=== PATIENT | female | born 1960 | race Caucasian/White ===

== ENCOUNTER 2017-01-16 14:25 | Inpatient (IN) | payer BC ==
[~2017-01-16] VITALS: Ht 165.1 cm; Wt 72.6 kg
[2017-01-16] MEDS ORDERED: IV NORMAL SALINE 1000ML BAG 1,000 ML IV SCH (15:25)
[2017-01-16] MEDS ORDERED: ONDANSETRON PF 4 MG/2 ML VIAL. IV ONE (15:30)
[2017-01-16] MEDS ORDERED: HYDROmorphone 2 MG/ML VIAL IV ONE (15:30)
[2017-01-16 15:45] LABS: BILIRUBIN,URINE SMALL (NEG); GLUCOSE,URINE NEGATIVE (NEG); NITRITE,URINE NEGATIVE (NEG); PH,URINE 5.5; PROTEIN,URINE 100 mg/dL (NEG-TRACE); UROBILINOGEN,URINE 0.2 mg/dL (0.2 mg/dL)
[2017-01-16 15:50] LABS: BACTERIA,URINE FEW /HPF (0-FEW); RBC,URINE OCC /HPF (0-2); WBC,URINE RARE /HPF (0-4)
[2017-01-16 15:51] LABS: SQUAMOUS EPITHELIAL CELL,UR MOD /LPF
[2017-01-16 15:52] LABS: INR 1.2 (0.8-1.1); PROTHROMBIN TIME PATIENT 14.5 SEC (11.7-14.0)
--- NOTE | 2017-01-16 15:53 | PHYS DOC ---
Past Medical History Past Medical History: DVT, Glaucoma, High Cholesterol, Hypothyroid Past Surgical History: Other Additional Past Surgical Histo: dental Alcohol Use: None Drug Use: None Adult General Chief Complaint Chief Complaint: ABDOMINAL PAIN HPI HPI Patient is a 56 year old female who presents with abdominal pain and N/V/D. Patient reports she has been having sharp pain in her RUQ/ R mid abdomen stretching across her abdomen since 0100 this morning. Has also been having N/V (emesis x6-9), loose stools (diarrhea x3-4), and feels bloated. She tried taking some pepto bismol but vomited right after she drank it. Patient reports one prior episode that she believes was diagnosed as gastritis. Review of Systems Review of Systems Constitutional: Denies fever or chills HENT: Denies nasal congestion or sore throat Respiratory: Denies cough or shortness of breath Cardiovascular: Denies chest pain GI: General abdominal pain, nausea, vomiting, diarrhea : Denies dysuria or hematuria Musculoskeletal: Denies back pain or joint pain Integument: Denies rash or skin lesions Neurologic: Denies headache, focal weakness or sensory changes Current Medications Current Medications Current Medications Medications (Trade) Dose Ordered Sig/Shanel Start Time Stop Time Status Last Admin Dose Admin Hydromorphone HCl (Dilaudid) 0.5 mg 1X ONCE 01/16/17 15:30 01/16/17 15:31 DC 01/16/17 16:03 0.5 MG Iohexol 75 ml 75 ml 1X ONCE 01/16/17 16:15 01/16/17 16:16 DC 01/16/17 16:12 75 ML Ondansetron HCl (Zofran) 4 mg 1X ONCE 01/16/17 15:30 01/16/17 15:31 DC 01/16/17 16:03 4 MG Sodium Chloride (Iv Sodium Chloride 0.9% 1000ml Bag) 1,000 ml @ 150 mls/hr Q6H40M 01/16/17 17:10 01/17/17 17:09 Allergies Allergies Allergies Coded Allergies Type Severity Reaction Last Updated Verified Penicillins Allergy Unknown 01/16/17 Yes Sulfa (Sulfonamide Antibiotics) Allergy Unknown 01/16/17 Yes amoxicillin Allergy Unknown 01/16/17 Yes Physical Exam Physical Exam Constitutional: Well developed, well nourished, uncomfortable, non-toxic appearance HENT: Normocephalic, atraumatic, bilateral external ears normal Cardiovascular: Heart rate normal, regular rhythm, no murmur Lungs & Thorax: Bilateral breath sounds clear to auscultation Abdomen: Bowel sounds normal, soft, distended, marked TTP throughout (worst in R mid abdomen), no guarding or rebound Skin: Warm, dry, no erythema, no rash Extremities: No obvious deformity, no edema Neurologic: Alert and oriented X 3, no gross deficits noted Current Patient Data Vital Signs Vital Signs Date Time Temp Pulse Resp B/P Pulse Ox O2 Delivery O2 Flow Rate FiO2 01/16/17 16:03 26 01/16/17 15:00 97.6 80 131/74 94 Room Air 97.6 Lab Values Laboratory Tests Test 01/16/17 14:54 01/16/17 15:25 Urine Collection Type Unknown Urine Color Dk yellow Urine Clarity Turbid Urine pH 5.5 Urine Specific [place] >=1.030 Urine Protein 100mg/dL (NEG-TRACE) Urine Glucose (UA) Negativemg/dL (NEG) Urine Ketones (Stick) 15mg/dL (NEG) Urine Blood Large (NEG) Urine Nitrite Negative (NEG) Urine Bilirubin Small (NEG) Urine Urobilinogen Dipstick 0.2mg/dL (0.2 mg/dL) Urine Leukocyte Esterase Negative (NEG) Urine RBC Occ/HPF (0-2) Urine WBC Rare/HPF (0-4) Urine Squamous Epithelial Cells Mod/LPF Urine Amorphous Sediment Present/HPF Urine Bacteria Few/HPF (0-FEW) Urine Mucus Marked/LPF White Blood Count 14.1x10^3/uL (4.0-11.0) H Red Blood Count 5.32x10^6/uL (3.50-5.40) Hemoglobin 14.6g/dL (12.0-15.5) Hematocrit 44.5% (36.0-47.0) Mean Corpuscular Volume 84fL (79-100) Mean Corpuscular Hemoglobin 28pg (25-35) Mean Corpuscular Hemoglobin Concent 33g/dL (31-37) Red Cell Distribution Width 17.4% (11.5-14.5) H Platelet Count 272x10^3/uL (140-400) Neutrophils (%) (Auto) 85% (31-73) H Lymphocytes (%) (Auto) 10% (24-48) L Monocytes (%) (Auto) 5% (0-9) Eosinophils (%) (Auto) 0% (0-3) Basophils (%) (Auto) 1% (0-3) Neutrophils # (Auto) 12.0x10^3uL (1.8-7.7) H Lymphocytes # (Auto) 1.4x10^3/uL (1.0-4.8) Monocytes # (Auto) 0.6x10^3/uL (0.0-1.1) Eosinophils # (Auto) 0.0x10^3/uL (0.0-0.7) Basophils # (Auto) 0.1x10^3/uL (0.0-0.2) Prothrombin Time 14.5SEC (11.7-14.0) H Prothrombin Time INR 1.2 (0.8-1.1) H Sodium Level 139mmol/L (136-145) Potassium Level 3.8mmol/L (3.5-5.1) Chloride Level 101mmol/L (98-107) Carbon Dioxide Level 26mmol/L (21-32) Anion Gap 12 (6-14) Blood Urea Nitrogen 15mg/dL (7-20) Creatinine 1.0mg/dL (0.6-1.0) Estimated GFR (Cockcroft-Gault) 57.4 BUN/Creatinine Ratio 15 (6-20) Glucose Level 136mg/dL (70-99) H Calcium Level 9.5mg/dL (8.5-10.1) Total Bilirubin 0.6mg/dL (0.2-1.0) Aspartate Amino Transferase (AST) 21U/L (15-37) Alanine Aminotransferase (ALT) 25U/L (14-59) Alkaline Phosphatase 112U/L (46-116) Total Protein 8.5g/dL (6.4-8.2) H Albumin 4.2g/dL (3.4-5.0) Albumin/Globulin Ratio 1.0 (1.0-1.7) Lipase 155U/L (73-393) Laboratory Tests 01/16/17 15:25 Laboratory Tests 01/16/17 15:25 EKG EKG [] Radiology/Procedures Radiology/Procedures CT A/P: Impression: Findings are seen consistent with a small bowel obstruction as outlined above. Course & Med Decision Making Course & Med Decision Making Pertinent Labs and Imaging studies reviewed. (See chart for details) Patient is 56 year old female who presents with abdominal pain, N/V/D. DDx includes appendicitis, bowel obstruction, gallbladder disease. Labs, UA, CT A/P ordered to evaluate. IV fluid bolus, pain meds, nausea meds ordered for patient comfort. Labs notable for leukocytosis. CT indicative of small bowel obstruction. Discussed results with patient. Discussed with Dr. Good (hr business partner consultant surgeon); will place NG tube, do not need to give abx at this time. Patient made NPO. I spoke with Dr. Silva, will admit under her care for further evaluation and treatment. Dragon Disclaimer Dragon Disclaimer This electronic medical record was generated, in whole or in part, using a voice recognition dictation system. Departure Departure Impression: Primary Impression: Small bowel obstruction Disposition: ADMITTED INPATIENT Admitting Physician: Huma Silva Condition: STABLE Referrals: UNKNOWN PCP NAME (PCP) CJ ABAD MD Jan 16, 2017 15:53
[2017-01-16 15:55] LABS: CALCIUM 9.5 mg/dL (8.5-10.1); GFR 57.4; POTASSIUM 3.8 mmol/L (3.5-5.1)
[2017-01-16 16:00] LABS: ALBUMIN 4.2 g/dL (3.4-5.0); TOTAL BILIRUBIN 0.6 mg/dL (0.2-1.0); TOTAL PROTEIN 8.5 g/dL (6.4-8.2)
[2017-01-16 16:11] LABS: BASO # 0.1 x10^3/uL (0.0-0.2); BASO % 1 % (0-3); EOS % 0 % (0-3); HEMATOCRIT 44.5 % (36.0-47.0); HEMOGLOBIN 14.6 g/dL (12.0-15.5); LYMPH # 1.4 x10^3/uL (1.0-4.8); LYMPH % 10 % (24-48); MEAN CORPUSCULAR HEMOGLOBIN 28 pg (25-35); MEAN CORPUSCULAR HGB CONC 33 g/dL (31-37); MEAN CORPUSCULAR VOLUME 84 fL (79-100); MONO % 5 % (0-9); NEUT % 85 % (31-73); PLATELET COUNT 272 x10^3/uL (140-400); RED BLOOD COUNT 5.32 x10^6/uL (3.50-5.40); RED CELL DISTRIBUTION WIDTH 17.4 % (11.5-14.5); WHITE BLOOD COUNT 14.1 x10^3/uL (4.0-11.0)
[2017-01-16] MEDS ORDERED: IOHEXOL 300 MG/ML 75 ML VIAL IV ONE (16:15)
--- NOTE | 2017-01-16 16:55 | RAD ---
CT scan of the abdomen and pelvis with contrast 01/16/2017 Clinical history: Right-sided abdominal pain with nausea and vomiting. Technique: After the intravenous administration of 60 cc of Omnipaque 300, contiguous, 5 mm axial sections were obtained to the abdomen and pelvis. One or more of the following individualized dose reduction techniques were utilized for this study: 1. Automated exposure control. 2. Adjustment of the mA and/or kV according to patient size. 3. Use of iterative reconstruction technique. Findings: Images through the lung bases are within normal limits. The liver parenchyma has a decreased attenuation consistent with mild fatty infiltration. The spleen, pancreas, adrenal glands and kidneys are within normal limits. The abdominal aorta tapers normally. The gallbladder is well-distended. No free fluid or free air is seen within the abdomen. The appendix is well visualized and is within normal limits. Progressive air and fluid dilatation of distal jejunal and proximal and mid ileal loops throughout the abdomen is seen. There appears to be a transition point in the caliber of the bowel in the right lower quadrant abdomen involving the distal ileum. These findings are consistent with a small bowel obstruction. The colon is decompressed. No abnormal fluid collection is seen. Images through the pelvis demonstrate the urinary bladder distended with urine. No free fluid is noted. No adnexal mass is seen. Degenerative changes are seen involving the mid and lower lumbar spine and both hips. Impression: Findings are seen consistent with a small bowel obstruction as outlined above.
[2017-01-16] MEDS ORDERED: HYDROmorphone 2 MG/ML VIAL IV PRN (17:15)
[2017-01-16] MEDS ORDERED: ONDANSETRON PF 4 MG/2 ML VIAL. IV PRN ×2 (17:15→17:30)
[2017-01-16] MEDS ORDERED: ACETAMINOPHEN 325 MG TABLET. PO PRN (17:15)
--- NOTE | 2017-01-16 17:30 | PDOC1 ---
History and Physical Date of Admission Date of Admission DATE: 01/16/17 TIME: 17:22 Identification/Chief Complaint Chief Complaint abd pain Problems: Source Source: Caregiver, Chart review, Patient History of Present Illness History of Present Illness pleasant 56 y.o female who is just here in [place] visiting for a wedding, acute abd pain today, mostly R sided area, no emesis, some liquidy stools today , LAst BM 2 AM today, went to ER, WBC 14, CT scan shows a transition point and some partial SBP, Hence pt admitted, Same issue HAppened 5 yrs ago, no past abd surgeries, non narcotic abuser, Maybe on constipated side, LAst tx DID not need an nGT, "loaded her up with stool softener" and bowel obstruction relieved, NO mention of heavy stools on CT. I have personally reviewed CT Abd feels bloated, tympanitic but no guarding, no rebound, NO fevers, VS ok,. Dilaudid signif helps the pain. PAst medical; hypothyroid on synthroid - last checked 2 mos ago - at goal Glaucoma on eye drps Dyslipidemia on statin DVT from control patch - off AC PAst sx: none Allergies to PCN,ampicillin and sulfa - anaphylaxis Fam hx: DVT, emphysema, smoking hx in fam Non smoker, non drinker no street drugs ROS: all 14 pt neg reviewed except in HPI Social History Smoke: No ALCOHOL: none Drugs: None Current Medications Current Medications Current Medications Sodium Chloride (Iv Sodium Chloride 0.9% 1000ml Bag) 1,000 ml @ 1,000 mls/hr Q1H IV Last administered on 01/16/17 16:03; Start 01/16/17 at 15:25; Stop at 16:24; Status DC Hydromorphone HCl (Dilaudid) 0.5 mg 1X ONCE IV Last administered on 01/16/17 16:03; Start 01/16/17 at 15:30; Stop 01/16/17 at 15:31; Status DC Ondansetron HCl (Zofran) 4 mg 1X ONCE IV Last administered on 01/16/17 16:03 ; Start 01/16/17 at 15:30; Stop 01/16/17 at 15:31; Status DC Iohexol (Omnipaque 300 Mg/ml) 75 ml 1X ONCE IV Last administered on 4/23/17at 16:12; Start 01/16/17 at 16:15; Stop 01/16/17 at 16:16; Status DC Ondansetron HCl 4 mg 4 mg PRN Q8HRS PRN IV NAUSEA/VOMITING; Start 01/16/17 at 17:15; Stop 01/17/17 at 17:14 Sodium Chloride (Iv Sodium Chloride 0.9% 1000ml Bag) 1,000 ml @ 150 mls/hr Q6H40M IV ; Start 01/16/17 at 17:10; Stop 01/17/17 at 17:09 Acetaminophen (Tylenol) 650 mg PRN Q4HRS PRN PO FEVER; Start 01/16/17 at 17:15 ; Stop 01/17/17 at 17:14 Hydromorphone HCl (Dilaudid) 0.5 mg PRN Q1HR PRN IV pain; Start 01/16/17 at 17: 15 Allergies Allergies: Coded Allergies: Penicillins (Verified Allergy, Unknown, 01/16/17) Sulfa (Sulfonamide Antibiotics) (Verified Allergy, Unknown, 01/16/17) amoxicillin (Verified Allergy, Unknown, 01/16/17) ROS General: No: Appetite, Chills, Fatigue, Malaise, Night Sweats, Other PSYCHOLOGICAL ROS: No: Anxiety, Behavioral Disorder, Concentration difficultie , Decreased libido, Depression, Disorientation, Hallucinations, Hostility, Irritablity, Memory difficulties, Mood Swings, Obsessive thoughts, Other, Physical abuse, Sexual abuse, Sleep disturbances, Suicidal ideation Eyes: No Blurry vision, No Decreased vision, No Double vision, No Dry eyes, No Excessive tearing, No Eye Pain, No Itchy Eyes, No Loss of vision, No Other, No Photophobia, No Scotomata, No Uses contacts, No Uses glasses HEENT: No: Epistaxis, Heacaches, Hearing change, Nasal congestion, Nasal discharge, Oral lesions, Other, Sinus pain, Sneezing, Snoring, Sore Throat, Tinnitus, Vertigo, Visual Changes, Vocal changes ALLERGY AND IMMUNOLOGY: No: Hives, Insect Bite Sensitivity, Itchy/Watery Eyes, Nasal Congestion, Other, Post Nasal Drip, Seasonal Allergies Hematological and Lymphatic: No: Bleeding Problems, Blood Clots, Blood Transfusions, Brusing, Night Sweats, Other, Pallor, Swollen Lymph Nodes ENDOCRINE: No: Breast Changes, Galactorrhea, Hair Pattern Changes, Hot Flashes , Malaise/lethargy, Mood Swings, Other, Palpitations, Polydipsia/polyuria, Skin Changes, Temperature Intolerance, Unexpected Weight Changes Breast: No New/Changing Breast Lumps, No Nipple changes, No Nipple discharge, No Other Respiratory: No: Cough, Hemoptysis, Orthopnea, Other, Pleuritic Pain, SOB with excertion, Shortness of breath, Sputum Changes, Stridor, Tachypnea, Wheezing Cardiovascular: No Chest Pain, No Edema, No Lt Headedness, No Orthopnea, No Other, No Palpitations, No Paroxysmal Noc. Dyspnea Gastrointestinal: Yes Abdominal Pain, Yes Constipation Genitourinary: No , No , No , No , No , No , No , No Discharge, No Dysuria, No Flank Pain, No Frequency, No Hematuria, No Incontinence, No Other, No Pain, No Retention, No Urgency Musculoskeletal: No Gait Disturbance, No Joint Pain, No Joint Stiffness, No Joint Swelling, No Muscle Pain, No Muscular Weakness, No Other, No Pain In:, No Swelling In: Neurological: No Behavorial Changes, No Bowel/Bladder ControlChng, No Confusion , No Dizziness, No Gait Disturbance, No Headaches, No Impaired Coord/balance, No Memory Loss, No Numbness/Tingling, No Other, No Seizures, No Speech Problems , No Tremors, No Visual Changes, No Weakness Skin: No Acne, No Dry Skin, No Eczema, No Hair Changes, No Lumps, No Mole Changes, No Mottling, No Nail Changes, No Other, No Pruritus, No Rash, No Skin Lesion Changes Physical Exam General: Alert, Oriented X3, Cooperative, No acute distress HEENT: Atraumatic, PERRLA, EOMI Lungs: Clear to auscultation, Normal air movement Heart: S1S2, no gallops Cardiovascular: S1, S2 Breasts: Normal Abdomen: Soft, Other (hypoactive BS< tympanitic) Extremities: No clubbing, No cyanosis, No edema, Normal pulses, No tenderness/ swelling Skin: No rashes, No breakdown, No significant lesion Neuro: Normal gait, Normal speech, Strength at 5/5 X4 ext, Normal tone, Sensation intact, Cranial nerves 3-12 NL, Reflexes 2+ Psych/Mental Status: Mental status NL, Mood NL Vitals Vitals Vital Signs Date Time Temp Pulse Resp B/P Pulse Ox O2 Delivery O2 Flow Rate FiO2 01/16/17 16:03 26 01/16/17 15:00 97.6 80 131/74 94 Room Air 97.6 Labs Labs Laboratory Tests Test 01/16/17 14:54 01/16/17 15:25 Urine Collection Type Unknown Urine Color Dk yellow Urine Clarity Turbid Urine pH 5.5 Urine Specific [place] >=1.030 Urine Protein 100mg/dL (NEG-TRACE) Urine Glucose (UA) Negativemg/dL (NEG) Urine Ketones (Stick) 15mg/dL (NEG) Urine Blood Large (NEG) Urine Nitrite Negative (NEG) Urine Bilirubin Small (NEG) Urine Urobilinogen Dipstick 0.2mg/dL (0.2 mg/dL) Urine Leukocyte Esterase Negative (NEG) Urine RBC Occ/HPF (0-2) Urine WBC Rare/HPF (0-4) Urine Squamous Epithelial Cells Mod/LPF Urine Amorphous Sediment Present/HPF Urine Bacteria Few/HPF (0-FEW) Urine Mucus Marked/LPF White Blood Count 14.1x10^3/uL (4.0-11.0) Red Blood Count 5.32x10^6/uL (3.50-5.40) Hemoglobin 14.6g/dL (12.0-15.5) Hematocrit 44.5% (36.0-47.0) Mean Corpuscular Volume 84fL (79-100) Mean Corpuscular Hemoglobin 28pg (25-35) Mean Corpuscular Hemoglobin Concent 33g/dL (31-37) Red Cell Distribution Width 17.4% (11.5-14.5) Platelet Count 272x10^3/uL (140-400) Neutrophils (%) (Auto) 85% (31-73) Lymphocytes (%) (Auto) 10% (24-48) Monocytes (%) (Auto) 5% (0-9) Eosinophils (%) (Auto) 0% (0-3) Basophils (%) (Auto) 1% (0-3) Neutrophils # (Auto) 12.0x10^3uL (1.8-7.7) Lymphocytes # (Auto) 1.4x10^3/uL (1.0-4.8) Monocytes # (Auto) 0.6x10^3/uL (0.0-1.1) Eosinophils # (Auto) 0.0x10^3/uL (0.0-0.7) Basophils # (Auto) 0.1x10^3/uL (0.0-0.2) Prothrombin Time 14.5SEC (11.7-14.0) Prothromb Time International Ratio 1.2 (0.8-1.1) Sodium Level 139mmol/L (136-145) Potassium Level 3.8mmol/L (3.5-5.1) Chloride Level 101mmol/L (98-107) Carbon Dioxide Level 26mmol/L (21-32) Anion Gap 12 (6-14) Blood Urea Nitrogen 15mg/dL (7-20) Creatinine 1.0mg/dL (0.6-1.0) Estimated GFR (Cockcroft-Gault) 57.4 BUN/Creatinine Ratio 15 (6-20) Glucose Level 136mg/dL (70-99) Calcium Level 9.5mg/dL (8.5-10.1) Total Bilirubin 0.6mg/dL (0.2-1.0) Aspartate Amino Transf (AST/SGOT) 21U/L (15-37) Alanine Aminotransferase (ALT/SGPT) 25U/L (14-59) Alkaline Phosphatase 112U/L (46-116) Total Protein 8.5g/dL (6.4-8.2) Albumin 4.2g/dL (3.4-5.0) Albumin/Globulin Ratio 1.0 (1.0-1.7) Lipase 155U/L (73-393) Laboratory Tests Test 01/16/17 14:54 01/16/17 15:25 Urine Collection Type Unknown Urine Color Dk yellow Urine Clarity Turbid Urine pH 5.5 Urine Specific [place] >=1.030 Urine Protein 100mg/dL (NEG-TRACE) Urine Glucose (UA) Negativemg/dL (NEG) Urine Ketones (Stick) 15mg/dL (NEG) Urine Blood Large (NEG) Urine Nitrite Negative (NEG) Urine Bilirubin Small (NEG) Urine Urobilinogen Dipstick 0.2mg/dL (0.2 mg/dL) Urine Leukocyte Esterase Negative (NEG) Urine RBC Occ/HPF (0-2) Urine WBC Rare/HPF (0-4) Urine Squamous Epithelial Cells Mod/LPF Urine Amorphous Sediment Present/HPF Urine Bacteria Few/HPF (0-FEW) Urine Mucus Marked/LPF White Blood Count 14.1x10^3/uL (4.0-11.0) Red Blood Count 5.32x10^6/uL (3.50-5.40) Hemoglobin 14.6g/dL (12.0-15.5) Hematocrit 44.5% (36.0-47.0) Mean Corpuscular Volume 84fL (79-100) Mean Corpuscular Hemoglobin 28pg (25-35) Mean Corpuscular Hemoglobin Concent 33g/dL (31-37) Red Cell Distribution Width 17.4% (11.5-14.5) Platelet Count 272x10^3/uL (140-400) Neutrophils (%) (Auto) 85% (31-73) Lymphocytes (%) (Auto) 10% (24-48) Monocytes (%) (Auto) 5% (0-9) Eosinophils (%) (Auto) 0% (0-3) Basophils (%) (Auto) 1% (0-3) Neutrophils # (Auto) 12.0x10^3uL (1.8-7.7) Lymphocytes # (Auto) 1.4x10^3/uL (1.0-4.8) Monocytes # (Auto) 0.6x10^3/uL (0.0-1.1) Eosinophils # (Auto) 0.0x10^3/uL (0.0-0.7) Basophils # (Auto) 0.1x10^3/uL (0.0-0.2) Prothrombin Time 14.5SEC (11.7-14.0) Prothromb Time International Ratio 1.2 (0.8-1.1) Sodium Level 139mmol/L (136-145) Potassium Level 3.8mmol/L (3.5-5.1) Chloride Level 101mmol/L (98-107) Carbon Dioxide Level 26mmol/L (21-32) Anion Gap 12 (6-14) Blood Urea Nitrogen 15mg/dL (7-20) Creatinine 1.0mg/dL (0.6-1.0) Estimated GFR (Cockcroft-Gault) 57.4 BUN/Creatinine Ratio 15 (6-20) Glucose Level 136mg/dL (70-99) Calcium Level 9.5mg/dL (8.5-10.1) Total Bilirubin 0.6mg/dL (0.2-1.0) Aspartate Amino Transf (AST/SGOT) 21U/L (15-37) Alanine Aminotransferase (ALT/SGPT) 25U/L (14-59) Alkaline Phosphatase 112U/L (46-116) Total Protein 8.5g/dL (6.4-8.2) Albumin 4.2g/dL (3.4-5.0) Albumin/Globulin Ratio 1.0 (1.0-1.7) Lipase 155U/L (73-393) VTE Prophylaxis Ordered VTE Prophylaxis Devices: Yes VTE Pharmacological Prophylaxi: Yes Assessment/Plan Assessment/Plan 1. PArtial SBO \\2. COnstipation 3, hypothyrodism on synthorid 4,. Dyslipidemia on statin 5. Glaucoma on eye drops \\6. Obesity 7. Reactive leukocytosis PLAN: NPO, IVF Check TSH, T3, T4 Consult Gi and GS Dilaudid for pain Stool regimen Possibly KUB in AM or tues AM Dw ER MD, and pt Seen at ER 22 RONNIE VINCENT MD Jan 16, 2017 17:29
--- NOTE | 2017-01-16 18:08 | ACF ---
Admission Forms Criteria INTESTINAL OBSTRUCTION Clinical Indications for Admission to Inpatient Care (Place 'X' for any and all applicable criteria): Admission is indicated for ANY ONE of the following (1)(2)(3)(4)(5): [X]I. Partial bowel obstruction [ ]II. Complete bowel obstruction Extended stay beyond goal length of stay may be needed for(1)(4)(12(: [ ]a) Identified etiology (eg, hernia, volvulus, cancer with obstruction) requiring intervention [ ]b) Gallstone ileus [ ]c) Surgical intervention [ ]d) Acute comorbid illness (eg, electrolyte imbalance, hypovolemia, renal failure) The original [employer] content created by [employer] has been revised. The portions of the content which have been revised are identified through the use of italic text or in bold, and [facility] has neither reviewed nor approved the modified material. All other unmodified content is copyright [employer]. Please see references footnoted in the original [employer] edition 2016 Admission Criteria Met?: Yes ANDRÉS CORDON Jan 16, 2017 18:08
[2017-01-16 18:20] VITALS: BP 121/66
[2017-01-16 18:21] LABS: FREE T4 1.08 ng/dL (0.76-1.46)
[2017-01-16] MEDS: IV NORMAL SALINE 1000ML BAG 1,000 ML IV SCH (18:25)
[2017-01-16 19:30] VITALS: BP 115/66
[2017-01-16] MEDS ORDERED: LEVO50TA5 PO (20:39)
[2017-01-16] MEDS ORDERED: PRAV40TA2 PO (20:39)
[2017-01-16] MEDS ORDERED: LATA2.5D3 EACHEYE (20:39)
[2017-01-16] MEDS ORDERED: GENI30TA2 PO (20:39)
[2017-01-16 23:15] VITALS: BP 89/53
[2017-01-17] MEDS: IV NORMAL SALINE 1000ML BAG 1,000 ML IV SCH ×3 (00:05→13:10)
[2017-01-17 03:27] VITALS: BP 91/49
[2017-01-17 06:17] LABS: BASO # 0.1 x10^3/uL (0.0-0.2); BASO % 1 % (0-3); EOS % 1 % (0-3); HEMATOCRIT 38.1 % (36.0-47.0); HEMOGLOBIN 12.4 g/dL (12.0-15.5); LYMPH # 2.4 x10^3/uL (1.0-4.8); LYMPH % 31 % (24-48); MEAN CORPUSCULAR HEMOGLOBIN 28 pg (25-35); MEAN CORPUSCULAR HGB CONC 32 g/dL (31-37); MEAN CORPUSCULAR VOLUME 85 fL (79-100); MONO % 8 % (0-9); NEUT % 59 % (31-73); PLATELET COUNT 210 x10^3/uL (140-400); RED BLOOD COUNT 4.46 x10^6/uL (3.50-5.40); RED CELL DISTRIBUTION WIDTH 17.5 % (11.5-14.5); WHITE BLOOD COUNT 7.8 x10^3/uL (4.0-11.0)
[2017-01-17 06:27] LABS: CREATININE 0.8 mg/dL (0.6-1.0); GFR 74.2; POTASSIUM 3.8 mmol/L (3.5-5.1)
[2017-01-17 07:00] VITALS: BP 110/61
--- NOTE | 2017-01-17 09:52 | PDOC2 ---
GARRETT KING [employer] 01/17/17 0952: CONSULT Date of Consult Date of Consult DATE: 01/17/17 TIME: 09:43 Reason for Consult Reason for Consult: sbo Referring Physician Referring Physician: ER Identification/Chief Complaint Chief Complaint abdominal pain Source Source: Chart review, Patient History of Present Illness Reason for Visit: reports Tuesday in town for a wedding had a homeade meal that did contain pork( she is allergic to pork)tried to pick it out, but likely ate some After wedding, abdominal pain, n/v. Reports last BM today, still having some intermittent RLQ pain, + flatus. Did have a BM Tuesday also Similar symptoms 4 years ago, seen by her PCP for constipation and treated, that resolved her symptoms Past Medical History Cardiovascular: Hyperlipidemia Heme/Onc: Other (DVT) Endocrine: Hypothyroidism Past Surgical History Past Surgical History: No pertinent history Family History Family History: Other (noncontributory to current illness ) Social History No ALCOHOL: none Drugs: None Lives: with Family Current Problem List Problem List Problems Medical Problems: (1) Small bowel obstruction Status: Acute Current Medications Current Medications Current Medications Sodium Chloride (Iv Sodium Chloride 0.9% 1000ml Bag) 1,000 ml @ 1,000 mls/hr Q1H IV Last administered on 01/16/17 16:03; Start 01/16/17 at 15:25; Stop at 16:24; Status DC Hydromorphone HCl (Dilaudid) 0.5 mg 1X ONCE IV Last administered on 01/16/17 16:03; Start 01/16/17 at 15:30; Stop 01/16/17 at 15:31; Status DC Ondansetron HCl (Zofran) 4 mg 1X ONCE IV Last administered on 01/16/17 16:03 ; Start 01/16/17 at 15:30; Stop 01/16/17 at 15:31; Status DC Iohexol (Omnipaque 300 Mg/ml) 75 ml 1X ONCE IV Last administered on 01/16/17 16:12; Start 01/16/17 at 16:15; Stop 01/16/17 at 16:16; Status DC Ondansetron HCl 4 mg 4 mg PRN Q8HRS PRN IV NAUSEA/VOMITING; Start 01/16/17 at 17:15; Stop 01/16/17 at 17:31; Status DC Sodium Chloride (Iv Sodium Chloride 0.9% 1000ml Bag) 1,000 ml @ 150 mls/hr Q6H40M IV Last administered on 01/17/17 06:20; Start 01/16/17 at 17:10; Stop 01/17/17 at 17:09 Acetaminophen (Tylenol) 650 mg PRN Q4HRS PRN PO FEVER; Start 01/16/17 at 17:15 ; Stop 01/17/17 at 17:14 Hydromorphone HCl (Dilaudid) 0.5 mg PRN Q1HR PRN IV pain; Start 01/16/17 at 17: 15; Stop 01/16/17 at 17:31; Status DC Hydromorphone HCl (Dilaudid) 0.5 mg PRN Q2HR PRN IV pain Last administered on 18:24; Start 01/17/17 at 17:15 Ondansetron HCl (Zofran) 4 mg PRN Q6HRS PRN IV NAUSEA/VOMITING; Start 01/16/17 at 17:30 Active Scripts Active Reported Levothyroxine Sodium 50 Mcg Tablet 1 Tab PO DAILY Pravastatin Sodium 40 Mg Tablet 1 Tab PO QHS Latanoprost 2.5 Ml Drops 1 Drop EACHEYE DAILY Allergies Allergies: Coded Allergies: Penicillins (Verified Allergy, Intermediate, 01/16/17) Pork/Porcine Containing Products (Verified Allergy, Intermediate, Unknown , 01/16/17) Sulfa (Sulfonamide Antibiotics) (Verified Allergy, Intermediate, 01/16/17) amoxicillin (Verified Allergy, Intermediate, 01/16/17) avocado (Unverified Allergy, Intermediate, 01/17/17) doxycycline (Unverified Allergy, Intermediate, 01/17/17) tomato (Unverified Allergy, Intermediate, 01/17/17) ROS General: No: Chills, Other (fevers) PSYCHOLOGICAL ROS: No: Anxiety, Depression Eyes: No Blurry vision, No Double vision HEENT: No: Heacaches, Sore Throat Hematological and Lymphatic: YES: Blood Clots, No: Bleeding Problems Respiratory: No: Cough, Shortness of breath Cardiovascular: No Chest Pain, No Palpitations Gastrointestinal: Yes Other (see hpi) Genitourinary: No Dysuria, No Hematuria Musculoskeletal: No Joint Pain, No Muscle Pain Neurological: No Impaired Coord/balance, No Numbness/Tingling Skin: No Pruritus, No Rash Physical Exam General: Alert, Oriented X3, Cooperative, No acute distress HEENT: PERRLA, Mucous membr. moist/pink Lungs: Clear to auscultation, Normal air movement Heart: Regular rate, Normal S1, Normal S2, No murmurs Abdomen: Soft, Other (ND, tender to RLQ moderate palpation ) Extremities: No clubbing, No cyanosis Skin: No rashes, No breakdown Neuro: Normal speech, Sensation intact Psych/Mental Status: Mental status NL, Mood NL MUSCULOSKELETAL: No deformity, No swelling Vitals VITALS Vital Signs Date Time Temp Pulse Resp B/P Pulse Ox O2 Delivery O2 Flow Rate FiO2 01/17/17 07:30 Room Air 01/17/17 07:00 98.1 65 16 110/61 97 98.1 Labs Labs Laboratory Tests Test 01/16/17 14:54 01/16/17 15:25 01/17/17 05:25 Urine Collection Type Unknown Urine Color Dk yellow Urine Clarity Turbid Urine pH 5.5 Urine Specific [place] >=1.030 Urine Protein 100mg/dL (NEG-TRACE) Urine Glucose (UA) Negativemg/dL (NEG) Urine Ketones (Stick) 15mg/dL (NEG) Urine Blood Large (NEG) Urine Nitrite Negative (NEG) Urine Bilirubin Small (NEG) Urine Urobilinogen Dipstick 0.2mg/dL (0.2 mg/dL) Urine Leukocyte Esterase Negative (NEG) Urine RBC Occ/HPF (0-2) Urine WBC Rare/HPF (0-4) Urine Squamous Epithelial Cells Mod/LPF Urine Amorphous Sediment Present/HPF Urine Bacteria Few/HPF (0-FEW) Urine Mucus Marked/LPF White Blood Count 14.1x10^3/uL (4.0-11.0) 7.8x10^3/uL (4.0-11.0) Red Blood Count 5.32x10^6/uL (3.50-5.40) 4.46x10^6/uL (3.50-5.40) Hemoglobin 14.6g/dL (12.0-15.5) 12.4g/dL (12.0-15.5) Hematocrit 44.5% (36.0-47.0) 38.1% (36.0-47.0) Mean Corpuscular Volume 84fL (79-100) 85fL (79-100) Mean Corpuscular Hemoglobin 28pg (25-35) 28pg (25-35) Mean Corpuscular Hemoglobin Concent 33g/dL (31-37) 32g/dL (31-37) Red Cell Distribution Width 17.4% (11.5-14.5) 17.5% (11.5-14.5) Platelet Count 272x10^3/uL (140-400) 210x10^3/uL (140-400) Neutrophils (%) (Auto) 85% (31-73) 59% (31-73) Lymphocytes (%) (Auto) 10% (24-48) 31% (24-48) Monocytes (%) (Auto) 5% (0-9) 8% (0-9) Eosinophils (%) (Auto) 0% (0-3) 1% (0-3) Basophils (%) (Auto) 1% (0-3) 1% (0-3) Neutrophils # (Auto) 12.0x10^3uL (1.8-7.7) 4.6x10^3uL (1.8-7.7) Lymphocytes # (Auto) 1.4x10^3/uL (1.0-4.8) 2.4x10^3/uL (1.0-4.8) Monocytes # (Auto) 0.6x10^3/uL (0.0-1.1) 0.6x10^3/uL (0.0-1.1) Eosinophils # (Auto) 0.0x10^3/uL (0.0-0.7) 0.1x10^3/uL (0.0-0.7) Basophils # (Auto) 0.1x10^3/uL (0.0-0.2) 0.1x10^3/uL (0.0-0.2) Prothrombin Time 14.5SEC (11.7-14.0) Prothromb Time International Ratio 1.2 (0.8-1.1) Sodium Level 139mmol/L (136-145) 143mmol/L (136-145) Potassium Level 3.8mmol/L (3.5-5.1) 3.8mmol/L (3.5-5.1) Chloride Level 101mmol/L (98-107) 108mmol/L (98-107) Carbon Dioxide Level 26mmol/L (21-32) 26mmol/L (21-32) Anion Gap 12 (6-14) 9 (6-14) Blood Urea Nitrogen 15mg/dL (7-20) 12mg/dL (7-20) Creatinine 1.0mg/dL (0.6-1.0) 0.8mg/dL (0.6-1.0) Estimated GFR (Cockcroft-Gault) 57.4 74.2 BUN/Creatinine Ratio 15 (6-20) Glucose Level 136mg/dL (70-99) 87mg/dL (70-99) Calcium Level 9.5mg/dL (8.5-10.1) 8.0mg/dL (8.5-10.1) Total Bilirubin 0.6mg/dL (0.2-1.0) Aspartate Amino Transf (AST/SGOT) 21U/L (15-37) Alanine Aminotransferase (ALT/SGPT) 25U/L (14-59) Alkaline Phosphatase 112U/L (46-116) Total Protein 8.5g/dL (6.4-8.2) Albumin 4.2g/dL (3.4-5.0) Albumin/Globulin Ratio 1.0 (1.0-1.7) Lipase 155U/L (73-393) Thyroid Stimulating Hormone (TSH) 0.548uIU/mL (0.358-3.74) Free Thyroxine 1.08ng/dL (0.76-1.46) Free Triiodothyronine (T3) pg/mL 2.66pg/mL (2.18-3.98) Laboratory Tests Test 01/16/17 14:54 01/16/17 15:25 01/17/17 05:25 Urine Collection Type Unknown Urine Color Dk yellow Urine Clarity Turbid Urine pH 5.5 Urine Specific [place] >=1.030 Urine Protein 100mg/dL (NEG-TRACE) Urine Glucose (UA) Negativemg/dL (NEG) Urine Ketones (Stick) 15mg/dL (NEG) Urine Blood Large (NEG) Urine Nitrite Negative (NEG) Urine Bilirubin Small (NEG) Urine Urobilinogen Dipstick 0.2mg/dL (0.2 mg/dL) Urine Leukocyte Esterase Negative (NEG) Urine RBC Occ/HPF (0-2) Urine WBC Rare/HPF (0-4) Urine Squamous Epithelial Cells Mod/LPF Urine Amorphous Sediment Present/HPF Urine Bacteria Few/HPF (0-FEW) Urine Mucus Marked/LPF White Blood Count 14.1x10^3/uL (4.0-11.0) 7.8x10^3/uL (4.0-11.0) Red Blood Count 5.32x10^6/uL (3.50-5.40) 4.46x10^6/uL (3.50-5.40) Hemoglobin 14.6g/dL (12.0-15.5) 12.4g/dL (12.0-15.5) Hematocrit 44.5% (36.0-47.0) 38.1% (36.0-47.0) Mean Corpuscular Volume 84fL (79-100) 85fL (79-100) Mean Corpuscular Hemoglobin 28pg (25-35) 28pg (25-35) Mean Corpuscular Hemoglobin Concent 33g/dL (31-37) 32g/dL (31-37) Red Cell Distribution Width 17.4% (11.5-14.5) 17.5% (11.5-14.5) Platelet Count 272x10^3/uL (140-400) 210x10^3/uL (140-400) Neutrophils (%) (Auto) 85% (31-73) 59% (31-73) Lymphocytes (%) (Auto) 10% (24-48) 31% (24-48) Monocytes (%) (Auto) 5% (0-9) 8% (0-9) Eosinophils (%) (Auto) 0% (0-3) 1% (0-3) Basophils (%) (Auto) 1% (0-3) 1% (0-3) Neutrophils # (Auto) 12.0x10^3uL (1.8-7.7) 4.6x10^3uL (1.8-7.7) Lymphocytes # (Auto) 1.4x10^3/uL (1.0-4.8) 2.4x10^3/uL (1.0-4.8) Monocytes # (Auto) 0.6x10^3/uL (0.0-1.1) 0.6x10^3/uL (0.0-1.1) Eosinophils # (Auto) 0.0x10^3/uL (0.0-0.7) 0.1x10^3/uL (0.0-0.7) Basophils # (Auto) 0.1x10^3/uL (0.0-0.2) 0.1x10^3/uL (0.0-0.2) Prothrombin Time 14.5SEC (11.7-14.0) Prothromb Time International Ratio 1.2 (0.8-1.1) Sodium Level 139mmol/L (136-145) 143mmol/L (136-145) Potassium Level 3.8mmol/L (3.5-5.1) 3.8mmol/L (3.5-5.1) Chloride Level 101mmol/L (98-107) 108mmol/L (98-107) Carbon Dioxide Level 26mmol/L (21-32) 26mmol/L (21-32) Anion Gap 12 (6-14) 9 (6-14) Blood Urea Nitrogen 15mg/dL (7-20) 12mg/dL (7-20) Creatinine 1.0mg/dL (0.6-1.0) 0.8mg/dL (0.6-1.0) Estimated GFR (Cockcroft-Gault) 57.4 74.2 BUN/Creatinine Ratio 15 (6-20) Glucose Level 136mg/dL (70-99) 87mg/dL (70-99) Calcium Level 9.5mg/dL (8.5-10.1) 8.0mg/dL (8.5-10.1) Total Bilirubin 0.6mg/dL (0.2-1.0) Aspartate Amino Transf (AST/SGOT) 21U/L (15-37) Alanine Aminotransferase (ALT/SGPT) 25U/L (14-59) Alkaline Phosphatase 112U/L (46-116) Total Protein 8.5g/dL (6.4-8.2) Albumin 4.2g/dL (3.4-5.0) Albumin/Globulin Ratio 1.0 (1.0-1.7) Lipase 155U/L (73-393) Thyroid Stimulating Hormone (TSH) 0.548uIU/mL (0.358-3.74) Free Thyroxine 1.08ng/dL (0.76-1.46) Free Triiodothyronine (T3) pg/mL 2.66pg/mL (2.18-3.98) Assessment/Plan Assessment/Plan abdominal pain, n/v--sbo vs gastroenteritis CT concerning for possible SBO currently improved, having stools and flatus will check plain films will review with ADILENE Meraz MD 01/17/17 1547: CONSULT Allergies Allergies: Coded Allergies: Penicillins (Verified Allergy, Intermediate, 01/16/17) Pork/Porcine Containing Products (Verified Allergy, Intermediate, Unknown , 01/16/17) Sulfa (Sulfonamide Antibiotics) (Verified Allergy, Intermediate, 01/16/17) amoxicillin (Verified Allergy, Intermediate, 01/16/17) avocado (Unverified Allergy, Intermediate, 01/17/17) doxycycline (Unverified Allergy, Intermediate, 01/17/17) tomato (Unverified Allergy, Intermediate, 01/17/17) Assessment/Plan Assessment/Plan addendum i saw and examined her. i repeated hernandez parts of the consult, reviewed the chart and examined her. developed diffuse, severe abd pain after eating food containing pork at a wedding. pain has now mostly resolved and she had a normal bm today. she is hungry now. appears well abd soft nd nt a/p abd pain, n/v. unsure if the CT has 'overcalled' the finding of sbo. no hx of prior surgery and she has rapidly improved. discussed either sbft or clear, adat. she prefers clears, adat. i think that is very reasonable. if doing well on a diet, then expect home tomorrow. GARRETT KING APRN Jan 17, 2017 09:52 ADILENE DARLING MD Jan 17, 2017 15:47
--- NOTE | 2017-01-17 10:19 | PDOC ---
PROGRESS NOTES Chief Complaint Chief Complaint Partial SBO ASSESSMENT AND PLAN: 1. Partial SBO vs constipation: awaiting rpt KUB; + flatus. reglan tid 2. Leukocytosis: reactive, now resolved 3. Hypothyroidism: on Synthroid, therapeutic hormone levels 4. Dyslipidemia: on statin 5. Glaucoma: cont home eye drops 6. Obesity 7. Prophylaxis: PPI History of Present Illness History of Present Illness mild distension, no N/V. + flatus, no BM Vitals Vitals Vital Signs Date Time Temp Pulse Resp B/P Pulse Ox O2 Delivery O2 Flow Rate FiO2 01/17/17 07:30 Room Air 01/17/17 07:00 98.1 65 16 110/61 97 98.1 Physical Exam General: Alert, Oriented X3, Cooperative, No acute distress Heart: Regular rate, Normal S1, Normal S2, No murmurs Abdomen: Soft, Other (ND, tender to RLQ moderate palpation ) Extremities: No clubbing, No cyanosis Skin: No rashes, No breakdown Labs LABS Laboratory Tests Test 01/16/17 14:54 01/16/17 15:25 01/17/17 05:25 Urine Collection Type Unknown Urine Color Dk yellow Urine Clarity Turbid Urine pH 5.5 Urine Specific [place] >=1.030 Urine Protein 100mg/dL (NEG-TRACE) Urine Glucose (UA) Negativemg/dL (NEG) Urine Ketones (Stick) 15mg/dL (NEG) Urine Blood Large (NEG) Urine Nitrite Negative (NEG) Urine Bilirubin Small (NEG) Urine Urobilinogen Dipstick 0.2mg/dL (0.2 mg/dL) Urine Leukocyte Esterase Negative (NEG) Urine RBC Occ/HPF (0-2) Urine WBC Rare/HPF (0-4) Urine Squamous Epithelial Cells Mod/LPF Urine Amorphous Sediment Present/HPF Urine Bacteria Few/HPF (0-FEW) Urine Mucus Marked/LPF White Blood Count 14.1x10^3/uL (4.0-11.0) 7.8x10^3/uL (4.0-11.0) Red Blood Count 5.32x10^6/uL (3.50-5.40) 4.46x10^6/uL (3.50-5.40) Hemoglobin 14.6g/dL (12.0-15.5) 12.4g/dL (12.0-15.5) Hematocrit 44.5% (36.0-47.0) 38.1% (36.0-47.0) Mean Corpuscular Volume 84fL (79-100) 85fL (79-100) Mean Corpuscular Hemoglobin 28pg (25-35) 28pg (25-35) Mean Corpuscular Hemoglobin Concent 33g/dL (31-37) 32g/dL (31-37) Red Cell Distribution Width 17.4% (11.5-14.5) 17.5% (11.5-14.5) Platelet Count 272x10^3/uL (140-400) 210x10^3/uL (140-400) Neutrophils (%) (Auto) 85% (31-73) 59% (31-73) Lymphocytes (%) (Auto) 10% (24-48) 31% (24-48) Monocytes (%) (Auto) 5% (0-9) 8% (0-9) Eosinophils (%) (Auto) 0% (0-3) 1% (0-3) Basophils (%) (Auto) 1% (0-3) 1% (0-3) Neutrophils # (Auto) 12.0x10^3uL (1.8-7.7) 4.6x10^3uL (1.8-7.7) Lymphocytes # (Auto) 1.4x10^3/uL (1.0-4.8) 2.4x10^3/uL (1.0-4.8) Monocytes # (Auto) 0.6x10^3/uL (0.0-1.1) 0.6x10^3/uL (0.0-1.1) Eosinophils # (Auto) 0.0x10^3/uL (0.0-0.7) 0.1x10^3/uL (0.0-0.7) Basophils # (Auto) 0.1x10^3/uL (0.0-0.2) 0.1x10^3/uL (0.0-0.2) Prothrombin Time 14.5SEC (11.7-14.0) Prothromb Time International Ratio 1.2 (0.8-1.1) Sodium Level 139mmol/L (136-145) 143mmol/L (136-145) Potassium Level 3.8mmol/L (3.5-5.1) 3.8mmol/L (3.5-5.1) Chloride Level 101mmol/L (98-107) 108mmol/L (98-107) Carbon Dioxide Level 26mmol/L (21-32) 26mmol/L (21-32) Anion Gap 12 (6-14) 9 (6-14) Blood Urea Nitrogen 15mg/dL (7-20) 12mg/dL (7-20) Creatinine 1.0mg/dL (0.6-1.0) 0.8mg/dL (0.6-1.0) Estimated GFR (Cockcroft-Gault) 57.4 74.2 BUN/Creatinine Ratio 15 (6-20) Glucose Level 136mg/dL (70-99) 87mg/dL (70-99) Calcium Level 9.5mg/dL (8.5-10.1) 8.0mg/dL (8.5-10.1) Total Bilirubin 0.6mg/dL (0.2-1.0) Aspartate Amino Transf (AST/SGOT) 21U/L (15-37) Alanine Aminotransferase (ALT/SGPT) 25U/L (14-59) Alkaline Phosphatase 112U/L (46-116) Total Protein 8.5g/dL (6.4-8.2) Albumin 4.2g/dL (3.4-5.0) Albumin/Globulin Ratio 1.0 (1.0-1.7) Lipase 155U/L (73-393) Thyroid Stimulating Hormone (TSH) 0.548uIU/mL (0.358-3.74) Free Thyroxine 1.08ng/dL (0.76-1.46) Free Triiodothyronine (T3) pg/mL 2.66pg/mL (2.18-3.98) RUDDY DAIGLE MD Jan 17, 2017 10:19
--- NOTE | 2017-01-17 10:49 | RAD ---
Acute abdomen series with chest, 3 views, 01/17/2017: History: Abdominal pain, small bowel obstruction Today's exam is correlated with the CT study of 01/16/2017. Several small scattered air-fluid levels are noted in small bowel loops. The small bowel loops are only minimally prominent. There is gas and stool in the colon without colonic dilatation. No free air is evident in the abdomen. No abnormal abdominal calcifications are seen. The heart size and pulmonary vascularity are normal. No pulmonary infiltrates are seen. There is no evidence of pleural fluid. IMPRESSION: Mild residual partial small bowel obstruction versus an improving mild ileus.
[2017-01-17 10:57] VITALS: BP 108/56
[2017-01-17] MEDS ORDERED: LIOT5TAB3 PO (12:48)
[2017-01-17] MEDS: METOCLOPRAMIDE HCL 10 MG/2 ML VIAL. IV SCH ×2 (14:00→21:57)
[2017-01-17] MEDS: ACETAMINOPHEN 500 MG TABLET PO PRN ×2 (14:46→21:19)
[2017-01-17 15:00] VITALS: BP 121/70
[2017-01-17] MEDS ORDERED: HYDROmorphone 2 MG/ML VIAL IV PRN (17:15)
[2017-01-17 19:30] VITALS: BP 108/61
[2017-01-17 23:33] VITALS: BP 115/63
[2017-01-18 03:45] VITALS: BP 114/64
[2017-01-18 03:56] LABS: BASO % 0 % (0-3); EOS % 2 % (0-3); HEMATOCRIT 37.5 % (36.0-47.0); LYMPH # 3.2 x10^3/uL (1.0-4.8); LYMPH % 49 % (24-48); MEAN CORPUSCULAR HEMOGLOBIN 28 pg (25-35); MEAN CORPUSCULAR HGB CONC 32 g/dL (31-37); MEAN CORPUSCULAR VOLUME 86 fL (79-100); MONO % 7 % (0-9); NEUT % 42 % (31-73); PLATELET COUNT 198 x10^3/uL (140-400); RED BLOOD COUNT 4.35 x10^6/uL (3.50-5.40); RED CELL DISTRIBUTION WIDTH 17.3 % (11.5-14.5); WHITE BLOOD COUNT 6.6 x10^3/uL (4.0-11.0)
[2017-01-18 04:11] LABS: CALCIUM 8.5 mg/dL (8.5-10.1); CREATININE 0.9 mg/dL (0.6-1.0); GFR 64.8; POTASSIUM 3.7 mmol/L (3.5-5.1)
[2017-01-18] MEDS: METOCLOPRAMIDE HCL 10 MG/2 ML VIAL. IV SCH (05:11)
[2017-01-18] MEDS: ACETAMINOPHEN 500 MG TABLET PO PRN (06:04)
[2017-01-18 07:15] VITALS: BP 118/69
[2017-01-18] MEDS ORDERED: PANTOPRAZOLE IV PUSH 40 MG VIAL. IVP SCH (07:30)
--- NOTE | 2017-01-18 09:26 | PDOC ---
PROGRESS NOTES Chief Complaint Chief Complaint Partial SBO ASSESSMENT AND PLAN: 1. Partial SBO vs constipation: awaiting rpt KUB; + flatus. reglan tid 2. Leukocytosis: reactive, now resolved 3. Hypothyroidism: on Synthroid, therapeutic hormone levels 4. Dyslipidemia: on statin 5. Glaucoma: cont home eye drops 6. Obesity 7. Prophylaxis: PPI History of Present Illness History of Present Illness pain fairly well controlled. no other c/o Vitals Vitals Vital Signs Date Time Temp Pulse Resp B/P Pulse Ox O2 Delivery O2 Flow Rate FiO2 01/18/17 07:30 Room Air 01/18/17 07:15 98.1 55 18 118/69 98 98.1 Physical Exam General: Alert, Oriented X3, Cooperative, No acute distress Heart: Regular rate, Normal S1, Normal S2, No murmurs Abdomen: Soft, Other (ND, tender to RLQ moderate palpation ) Extremities: No clubbing, No cyanosis Skin: No rashes, No breakdown Labs LABS Laboratory Tests Test 01/18/17 03:40 White Blood Count 6.6x10^3/uL (4.0-11.0) Red Blood Count 4.35x10^6/uL (3.50-5.40) Hemoglobin 12.0g/dL (12.0-15.5) Hematocrit 37.5% (36.0-47.0) Mean Corpuscular Volume 86fL (79-100) Mean Corpuscular Hemoglobin 28pg (25-35) Mean Corpuscular Hemoglobin Concent 32g/dL (31-37) Red Cell Distribution Width 17.3% (11.5-14.5) Platelet Count 198x10^3/uL (140-400) Neutrophils (%) (Auto) 42% (31-73) Lymphocytes (%) (Auto) 49% (24-48) Monocytes (%) (Auto) 7% (0-9) Eosinophils (%) (Auto) 2% (0-3) Basophils (%) (Auto) 0% (0-3) Neutrophils # (Auto) 2.8x10^3uL (1.8-7.7) Lymphocytes # (Auto) 3.2x10^3/uL (1.0-4.8) Monocytes # (Auto) 0.5x10^3/uL (0.0-1.1) Eosinophils # (Auto) 0.1x10^3/uL (0.0-0.7) Basophils # (Auto) 0.0x10^3/uL (0.0-0.2) Sodium Level 142mmol/L (136-145) Potassium Level 3.7mmol/L (3.5-5.1) Chloride Level 106mmol/L (98-107) Carbon Dioxide Level 30mmol/L (21-32) Anion Gap 6 (6-14) Blood Urea Nitrogen 7mg/dL (7-20) Creatinine 0.9mg/dL (0.6-1.0) Estimated GFR (Cockcroft-Gault) 64.8 Glucose Level 85mg/dL (70-99) Calcium Level 8.5mg/dL (8.5-10.1) RUDDY DAIGLE MD Jan 18, 2017 09:26
[2017-01-18 11:00] VITALS: BP 111/62
--- NOTE | 2017-01-18 11:20 | PDOC ---
Provider Note Provider Note feels well. dressed in street clothes and wanting to go home. irma solid food. +bm. no abd pain, n/v or bloating. very pleased with her care at [facility] afeb vss abd soft nd nt appears well a/p abd pain, n/v. rapidly resolved. suspect ileus/gastroenteritis. resolved. dc home. ADILENE DARLING MD Jan 18, 2017 11:20
--- NOTE | 2017-01-21 21:01 | DS ---
DATE OF DISCHARGE: 01/18/2017 CHIEF COMPLAINT: Partial SBO. HOSPITAL COURSE: The patient is a 56-year-old woman who presented with abdominal pain which was determined to be a partial small-bowel obstruction versus constipation by x-rays in the Emergency Room. She was promptly admitted for further management and care. She was started on Reglan t.i.d. and bowel rest. She did have flatus during the entire hospitalization. Surgical consult was obtained and management was recommended to be conservative with observation. The patient indeed developed bowel movements, tolerated p.o. and was therefore discharged on the to home. PHYSICAL EXAMINATION: Please refer to note from same day. DISCHARGE DATE: 01/18/2017. DISCHARGE DISPOSITION: To home. DISCHARGE CONDITION: Improved. DISCHARGE DIAGNOSIS: Partial small-bowel obstruction. DISCHARGE MEDICATIONS: Please refer to MAR. DISCHARGE INSTRUCTIONS: The patient will follow up with PCP in 1-2 weeks[address] RUDDY DAIGLE [address]: JESUS ALBERTO/nts JOB#: [id number] / [id number]
== END 2017-01-18 12:15 | disposition home or self-care (01) | DRG 392 ==
LOC: ER 14:25 → 4 NORTH 17:11
PROVIDERS: ADMIT Internal Medicine; ATTEND Internal Medicine
DX: K52.9 Noninfective gastroenteritis and colitis, unspecified (principal); K56.7 Ileus, unspecified; E66.9 Obesity, unspecified; E78.00 Pure hypercholesterolemia, unspecified; E03.9 Hypothyroidism, unspecified; D72.828 Other elevated white blood cell count; K59.00 Constipation, unspecified; E78.5 Hyperlipidemia, unspecified; H40.9 Unspecified glaucoma; Z88.0 Allergy status to penicillin; Z68.26 Body mass index [BMI] 26.0-26.9, adult; Z86.718 Personal history of other venous thrombosis and embolism; Z87.891 Personal history of nicotine dependence; Z88.1 Allergy status to other antibiotic agents; Z88.2 Allergy status to sulfonamides; Z91.018 Allergy to other foods
CPT/HCPCS: 36415; 74022; 74177; 80048; 80053; 81001; 83690; 84439; 84443; 84481; 85027; 85610; 96361; 96374; 96375; J1170; J2405; J7030; Q9967; 99285-25